=== PATIENT | male | born 1975 | race African-American/Black ===

== ENCOUNTER 2019-09-08 20:10 | Inpatient (IN) | payer SELFPAY ==
--- NOTE | 2019-09-08 20:52 | PDOC ---
History of Present Illness - General Chief Complaint: Seizure Stated Complaint: SEIZURES Time Seen by Provider: 09/08/19 20:14 History Source: Significant Other Exam Limitations: Clinical Condition - History of Present Illness Initial Comments: 09/13/19 23:38 44M h/o seizures not on AEDs BIBEMS after 5-6 witnessed seizures. Pt is confused / post-ictal and unable to provide hx; information gathered w/ girlfriend at bedside. Girlfriend said pt was normal this AM but he was c/o nausea and vomiting; they were messaging all day until 5pm when pt stopped responding. Girlfriend arrived home around 7pm and found pt on ground actively seizing, described as generalized. EMS was called. Pt stopped seizing, did not return back to baseline, and then subsequently had a total of 5 witnessed seizures (by pt and ems). Pt is still not at baseline. Has had prior seizures in the past but never followed up w/ neurology due to missed appointment. He was seen 2 months ago at [facility] for seizure and had neuro f/u that was never completed. Never on AEDs. Endorses marijuana use and occasional etoh but denies other drug use. Received 5mg versed en route by EMS, no seizures since. Denies other PMH NKDA Past History - Past Medical History Allergies/Adverse Reactions: Allergies Allergy/AdvReac Type Severity Reaction Status Date / Time No Known Allergies Allergy Verified 09/08/19 21:33 Home Medications: Ambulatory Orders Folic Acid - 1 mg PO DAILY #30 tablet 09/10/19 Thiamine HCl [Vitamin B1 -] 100 mg PO DAILY #30 tablet 09/10/19 levETIRAcetam [Keppra -] 500 mg PO BID #60 tablet 09/10/19 Review of Systems - Review of Systems Able to Perform ROS?: No Comments:: 09/13/19 23:38 unable to obtain ROS 2/2 pt mental status / clinical condition *Physical Exam - Vital Signs Temp Pulse Resp BP Pulse Ox 98.3 F 92 H 18 147/75 96 09/10/19 17:18 09/10/19 17:18 09/10/19 17:18 09/10/19 17:18 09/10/19 09:00 - Physical Exam 09/13/19 23:38 GEN: NAD, awake and alert but not verbally responsive HEENT: NC/AT. Unable to assess pupils and eyes as pt closes eyes tight with light. No facial asymmetry. Supple neck w/ FROM. CV: S1/S2, RRR, no m/r/g LUNG: CTAB, no wheezes, crackles, rales, rhonchi. GI: soft, ndnt, +BS, no guarding, no rebound. EXTREMITIES:No obvious deformities of all extremities. SKIN: warm, dry, normal turgor PSYCH: confused, minimally cooperative NEURO: Moving all extremities ED Treatment Course - LABORATORY CBC & Chemistry Diagram: 09/10/19 07:34 09/10/19 07:34 Medical Decision Making - Medical Decision Making 09/08/19 21:12 44M h/o seizures not on AED BIBEMS for witnessed seizures. s/p versed w/o further seizures. Pt is not at baseline, not verbally responsive, minimally cooperative with neurologic exam. will evaluate for causes of seizures: infection, lytes, masses, toxicologic - CBC, CMP, Mg, Phos, etoh - UA, UC, UDS - CXR - CT head - neuro c/s - load w/ keppra 09/08/19 23:04 notified by lab that tox screen + for amphetamines, BZD, and marijuana - BZD likely 2/2 versed - marijuana was known - amphetamines as possible cause of seizure? 09/08/19 23:24 labs reviewed - f/u CT - pt is more alert and responsive now but not completely at baseline. able to follow commands and participate in a basic neurologic exam; moves all extremities and squeezes fingers. 09/09/19 00:06 CT HEAD IOC IMPRESSION: no acute intracranial changes 09/09/19 02:05 endorsed to hospitalist team // ADMITTED Discharge - Discharge Information Problems reviewed: Yes Clinical Impression/Diagnosis: Seizure Condition: Improved Disposition: HOME - Admission Yes - Follow up/Referral - Patient Discharge Instructions - Post Discharge Activity
[2019-09-08] MEDS ORDERED: levETIRAcetam 500 MG/5 ML INJECTION VIAL IVPB ONE (21:18)
--- NOTE | 2019-09-08 21:29 | PDOC ---
Documentation entered by Brian Hernandez SCRIBE, acting as scribe for Sarahy Mccrary MD. Sarahy Mccrary MD: This documentation has been prepared by the David burrows Nirvannie, SCRIBE, under my direction and personally reviewed by me in its entirety. I confirm that the documentation accurately reflects all work, treatment, procedures, and medical decision making performed by me. Attending Attestation - Resident Resident Name: CobosRogelio - ED Attending Attestation I have performed the following: I have examined & evaluated the patient, The case was reviewed & discussed with the resident, I agree w/resident's findings & plan, Exceptions are as noted - HPI HPI: 09/08/19 21:50 The patient is a 44 year old male, with a significant past medical history of seizures (not on medications or compliant with f/u), occasional substance abuse (alcohol, marijuana), who presents to the emergency department s/p 6 witnessed episodes of full-body convulsions. As per EMS, 4 convulsions were witnessed by first responders (fire dept/EMS) and 2 were witnessed by his girlfriend. Girlfriend notes her last message to him was at 5pm and there was a 2 hour period of time which she did not hear from him until her arrival home from work when she noticed him convulsing She notes he was at his baseline this morning prior to her leaving for work. Patient admits to smoking marijuana today. Patient has a history of seizures which he has not been compliant with outpatient follow up. While in the ED, patient is confused thus history was obtained via girlfriend at bedside. - Physicial Exam PE: 09/08/19 21:16 awake confused moves all four ext. lungs clear bilat heart rrr no mrg abd soft nt nd ext wwp. no edema. no calf tenderness. answers some quesitons, follows commands, but confused. post ictal. - Medical Decision Making 09/08/19 21:17 44 yo male h/o prior siezure, started over last year, never followed up. left ama from last visit. roberto had witnessed seizure by his girlfriend . per girlfriend, they were texting, and his messages dropped off around 5 pm. around 7 pm returned home found him seizing on the ground, unresponsive generalized tonic clonic seiure. called EMS. per EMS pt had two more witnessed back to back seizure. no f/c no trauma however was on the floor. pt is not currently taking any anti-epileptics. states occasional weed use, majority history from girlfriend at bedside as pt is confused not answering questions appropriately. last seizure was 8 mo ago, at which time he was admitted to [facility], and left AMA. 09/08/19 21:26 plan labs ekg tox screen ct head. will likely require keppra load. differential includes electrolyte abnormality tox, etoh withdrawal however denies, raumatic causes. will obtain ct head cxr labs ekg. will kwasi require admission. was given versed by EMS, will consult nuerology. 09/09/19 01:50 pt mental status improving. will admit due to number of seiures. given keppra load.
[2019-09-08] MEDS ORDERED: SODIUM CHLORIDE 0.9% 1000 ML INFUS.BAG IV ONE (21:30)
[2019-09-08 21:41] LABS: BASO % 0.3 % (0-2.0); EOS % 0.1 % (0-4.5); LYMPH % 6.4 % (8-40); MCH 32.4 pg (25.7-33.7); MCHC 33.3 g/dl (32.0-35.9); MEAN CELL VOLUME 97.4 fl (80-96); MEAN PLT VOLUME 8.3 fl (7.5-11.1); MONO % 9.8 % (3.8-10.2); NEUT % 83.4 % (42.8-82.8); RBC 4.31 M/mm3 (4.00-5.60); RDW 14.7 % (11.9-15.9); WHITE BLOOD COUNT 12.4 K/mm3 (4.0-10.0)
[2019-09-08 22:08] LABS: EPI CELLS 0.9 /HPF (0-5/HPF); HYALINE CASTS 2 /lpf (0-8); URINE APPEARANCE CLEAR; URINE BACTERIA 2.2 /hpf (NEGATIVE); URINE BILIRUBIN NEGATIVE (NEGATIVE); URINE COLOR YELLOW; URINE GLUCOSE (UA) 3+ (NEGATIVE); URINE KETONE NEGATIVE (NEGATIVE); URINE LEUK ESTERASE NEGATIVE (NEGATIVE); URINE NITRITE NEGATIVE (NEGATIVE); URINE PROTEIN 2+ (NEGATIVE); URINE RBC 0 /hpf (0-4); URINE UROBILINOGEN 0.2 mg/dL (0.2-1.0); URINE WBC 3 /hpf (0-5)
[2019-09-08 22:16] LABS: ALBUMIN 4.2 g/dl (3.4-5.0); BILIRUBIN,TOTAL 0.3 mg/dL (0.2-1); CALCIUM 8.9 mg/dL (8.5-10.1); CREATININE 0.8 mg/dL (0.55-1.3); MAGNESIUM 2.2 mg/dL (1.8-2.4); PHOSPHOROUS 3.2 mg/dL (2.5-4.9); POTASSIUM 4.4 mmol/L (3.5-5.1); TOT PROT 7.6 g/dl (6.4-8.2)
[2019-09-08 22:18] LABS: PLATELET COUNT 216 K/MM3 (134-434); PLATELET ESTIMATE ADEQUATE
[2019-09-08 22:59] LABS: COCAINE, UR NEGATIVE ng/ml (CUTOFF=300); METHADONE, UR NEGATIVE ng/ml (CUTOFF=300); OPIATES, URI NEGATIVE ng/ml (CUTOFF=300); PHENCYCLIDINE,URINE NEGATIVE ng/ml (CUTOFF=25); URINE BARBITURATES NEGATIVE ng/ml (CUTOFF=200)
[2019-09-08 23:00] LABS: URINE AMPHETAMINES POSITIVE ng/ml (CUTOFF=500)
[2019-09-08 23:01] LABS: URINE BENZODIAZEPINES POSITIVE ng/ml (CUTOFF=200)
--- NOTE | 2019-09-09 02:55 | PN ---
Teaching Attending Note Name of Resident: Loren Madrigal ATTENDING PHYSICIAN STATEMENT I saw and evaluated the patient. I reviewed the resident's note and discussed the case with the resident. I agree with the resident's findings and plan as documented. SUBJECTIVE: Patient is a 44 year old man with a PMH of Seizures (not on medications or compliant with f/u) and Substance abuse (alcohol, marijuana), who presents to the emergency department after six witnessed episodes of full-body convulsions. As per EMS, 4 convulsions were witnessed by first responders (fire dept/EMS) and 2 were witnessed by his girlfriend. Girlfriend notes her last message to him was at 5pm and there was a 2 hour period of time which she did not hear from him until her arrival home from work when she noticed him convulsing. She notes he was at his baseline this morning prior to her leaving for work. Patient admits to smoking marijuana today. Patient has a history of seizures which he has not been compliant with outpatient follow up. While in the ER, patient is confused thus history was obtained via girlfriend at bedside. 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 Smokes marijuana and drinks alcohol with his girlfriend. EMS gave him Versed 5 mg en route. ROS not obtained due to his condition. OBJECTIVE: Somnolent but arousable Vital Signs Period Temp Pulse Resp BP Sys/Hyman Pulse Ox Last 24 Hr 97.8 F 107 20 141/86 95 HEENT: No Jaundice, eye redness or discharge, PERRLA, EOMI. Normocephalic, atraumatic. External ears are normal and hearing is grossly intact. No nasal discharge. Neck: Supple, nontender. No palpable adenopathy or thyromegaly. No JVD Chest: Good effort. Clear to auscultation and percussion. Heart: Regular. No S3, rub or murmur Abdomen: Not distended, soft, nontender and no HSM. No rebound or guarding. Normal bowel sounds. Ext: Peripheral pulses intact. No leg edema. Skin: Warm and dry. No petechiae, rash or ecchymosis. Neuro: Somnolent but arousable. Oriented person and place. CN 2-12 grossly intact. Sensation grossly intact in all four extremities and DTR are symmetric. Psych: Appropriate mood and affect. Poor insight. Abnormal Lab Results 09/08/19 09/08/19 09/08/19 21:25 21:25 21:50 WBC 12.4 H MCV 97.4 H Absolute Neuts (auto) 10.4 H Neutrophils % 83.4 H Lymphocytes % 6.4 L Nucleated RBC % 4 H Anion Gap 6 L AST 46 H Urine Protein Urine Glucose (UA) Urine Blood Ur Amphetamines Screen Positive A* Benzodiazepines Screen Positive A* U Marijuana (THC) Screen Positive A* 09/08/19 21:50 WBC MCV Absolute Neuts (auto) Neutrophils % Lymphocytes % Nucleated RBC % Anion Gap AST Urine Protein 2+ H Urine Glucose (UA) 3+ H Urine Blood 1+ H Ur Amphetamines Screen Benzodiazepines Screen U Marijuana (THC) Screen ASSESSMENT AND PLAN: 1. Recurrent seizures - Etiology unclear. May be related to his drug use and/or illicit drugs laced with proconvulsant substances. According to his girlfriend, the seizures started about 8 months ago. Lack of outpatient workup/follow up may be related to health insurance issues. No acute intracranial abnormality on Head CT and no acute abnormality on CXR. EKG shows NSR with PACs, LAE and LVH. Urine toxicology showed amphetamines, marijuana and benzodiazepine (? Versed). In the ER he got Keppra 1000 mg IV and IV NS. Continue Keppra 500 mg bid. Leukocytosis likely stress related - will monitor CBC. Piter get CPK, HbA1c and repeat urinalysis in view of glucosuria. Get brain MRI, EEG, RPR and consider lumbar puncture if all other workup is negative. Consult neurology. Will continue comprehensive care for all of patients comorbid conditions. Outpatient referral for BP monitoring since he may have undiagnosed hypertension (!has LVH). 2. Polysubstance abuse - Will monitor for drug withdrawal. Implement [facility] librium alcohol withdrawal protocol and do neurochecks. Implement seizure, fall and aspiration precautions. Treat with thiamine and folic acid and monitor electrolytes (Ca,Mg,K,P). Counseled patient about abstaining from alcohol/ illicit drugs. Will consult sight effects specialist and refer to alcohol/drug detox upon discharge. 3. DVT prophylaxis - Lovenox 40 mg SQ q 24 hours. 4. Advance directives - Full code
--- NOTE | 2019-09-09 03:03 | HP ---
CHIEF COMPLAINT: Seizure PCP: Unknown HISTORY OF PRESENT ILLNESS: Mr. Green is a 44 year old male with hx of seizures who was BIBEMS s/p 5 witnessed seizures. Pt in ED is confused and post-ictal and unable to provide thorough and reliable hx. Girlfriend at bedside assisted with information. Per girlfriend, pt was at baseline this morning and only complained of mild nausea. They messaged all day until 5pm, pt stopped responding. Girlfriend arrived to his home around 7pm and pt was found on ground actively seizing (all extremities , unresponsive, urinated himself). EMS was called. Pt had stopped seizing for several minutes, but did not return to baseline. He then proceeded to have a total of 5 witnessed generalized seizures en route to ED (witnessed by both pt and EMS). On arrival, pt is confused and not oriented, very lethargic but arousable. Pt had similar seizures 2 weeks ago and was seen at [facility] but never followed up with neurology or completed workup. Pt has hx of leaving AMA from [facility]. He has never been placed on anti-epileptic drugs. ER course was notable for: (1) Pt received versed in EMS, loaded with 1gm Keppra by ED (2) CT head: no evidence of acute infarct/hemorrhage or intracranial pathology; motion artifact (3) Dr. García consulted: observe overnight, will evaluate in the am. Did not recommend further imaging or intervention at this time. Recent Travel: unknown PAST MEDICAL HISTORY: Seizures PAST SURGICAL HISTORY: Unknown Social History: Smoking: denies Alcohol: yes, 1.75 L over 4 days with his Drugs: Marijuana. Amphetamines positive in urine, but pt does not admit to use Allergies No Known Allergies Allergy (Verified 09/08/19 21:33) HOME MEDICATIONS: REVIEW OF SYSTEMS CONSTITUTIONAL: Absent: fever, chills, diaphoresis, generalized weakness, malaise, loss of appetite, weight change HEENT: Absent: rhinorrhea, nasal congestion, throat pain, throat swelling, difficulty swallowing, mouth swelling, ear pain, eye pain, visual changes CARDIOVASCULAR: Absent: chest pain, syncope, palpitations, irregular heart rate, lightheadedness , peripheral edema RESPIRATORY: Absent: cough, shortness of breath, dyspnea with exertion, orthopnea, wheezing, stridor, hemoptysis GASTROINTESTINAL: Absent: abdominal pain, abdominal distension, nausea, vomiting, diarrhea, constipation, melena, hematochezia GENITOURINARY: Absent: dysuria, frequency, urgency, hesitancy, hematuria, flank pain, genital pain MUSCULOSKELETAL: Absent: myalgia, arthralgia, joint swelling, back pain, neck pain SKIN: Absent: rash, itching, pallor HEMATOLOGIC/IMMUNOLOGIC: Absent: easy bleeding, easy bruising, lymphadenopathy, frequent infections ENDOCRINE: Absent: unexplained weight gain, unexplained weight loss, heat intolerance, cold intolerance NEUROLOGIC: seizures Absent: headache, focal weakness or paresthesias, dizziness, unsteady gait, mental status changes, bladder or bowel incontinence PSYCHIATRIC: Absent: anxiety, depression, suicidal or homicidal ideation, hallucinations. PHYSICAL EXAMINATION Vital Signs - 24 hr 09/08/19 20:20 Temperature 97.8 F Pulse Rate 107 H Respiratory 20 Rate Blood Pressure 141/86 O2 Sat by Pulse 95 Oximetry (%) GENERAL: Somnolent, but arousable. Oriented to person and place. HEAD: Normal with no signs of trauma. EYES: Pupils equal, round and reactive to light, extraocular movements intact, sclera anicteric, conjunctiva clear. No lid lag. EARS, NOSE, THROAT: Ears normal, nares patent, oropharynx clear without exudates. Moist mucous membranes. NECK: Normal range of motion, supple without lymphadenopathy, JVD, or masses. LUNGS: Breath sounds equal, clear to auscultation bilaterally. No wheezes, and no crackles. No accessory muscle use. HEART: Irregular rate and rhythm, normal S1 and S2 without murmur, rub or gallop. ABDOMEN: Soft, nontender, not distended, normoactive bowel sounds, no guarding, no rebound, no masses. No hepatomegaly or splenomegaly. MUSCULOSKELETAL: Normal range of motion at all joints. No bony deformities or tenderness. No CVA tenderness. UPPER EXTREMITIES: 2+ pulses, warm, well-perfused. No cyanosis. No clubbing. No peripheral edema. LOWER EXTREMITIES: 2+ pulses, warm, well-perfused. No calf tenderness. No peripheral edema. NEUROLOGICAL: Cranial nerves II-XII intact. Normal speech. Normal gait. PSYCHIATRIC: Cooperative. Good eye contact. Appropriate mood and affect. SKIN: Warm, dry, normal turgor, no rashes or lesions noted, normal capillary refill. Laboratory Results - last 24 hr CBC, BMP 09/08/19 21:25 09/08/19 21:25 Urine Test Results Urine Color Yellow Urine Appearance Clear Urine pH 5.0 (5.0-8.0) Ur Specific [place] 1.018 (1.010-1.035) Urine Protein 2+ (NEGATIVE) H Urine Glucose (UA) 3+ (NEGATIVE) H Urine Ketones Negative (NEGATIVE) Urine Blood 1+ (NEGATIVE) H Urine Nitrite Negative (NEGATIVE) Urine Bilirubin Negative (NEGATIVE) Ur Leukocyte Esterase Negative (NEGATIVE) ASSESSMENT/PLAN: Mr. Green is a 44 year old male with hx of seizures who was BIBEMS s/p 5 witnessed seizures. #Generalized seizures, etiology unclear Likely 2/2 amphetamine use vs alcohol withdrawal vs other illicit drug use laced with proconvulsant substances CT head: no evidence of acute infarct/hemorrhage or intracranial pathology; motion artifact Utox: positive for marijuana, amphetamines, benzos (? from versed in EMS). F/ u alcohol level UA: 3+ glucose, 3+ protein, 1+ blood. Hematuria and proteinuria likely 2/2 rhabdo. F/u CPK and IV hydration as needed Glucosuria etiology unclear. Pt denies known hx of DM. F/u Hgb A1C% Pt received IV 1gm keppra in ED. Cont 500mg BID F/u MRI, EEG, RPR. Consider LP if workup is negative Neurology consulted (Dr. García) Fall precautions and NPO #Alcohol abuse Pt admits to 1.75L vodka over every 4 days. Last drink unknown. Ativan and CIWA protocol Treat with banana bag Frequent neuro checks and monitor for withdrawal #Undiagnosed HTN as pt shows evidence of LVH EKG: NSR with PACs, LAE and LVH F/u repeat EKG and frequent BP monitoring Outpatient referral #FEN Banana bag, start IV NS if needed for CPK NPO #DVT ppx Heparin sq #Dispo Monitor on med-surg ATTENDING PHYSICIAN STATEMENT I saw and evaluated the patient. I reviewed the resident's note and discussed the case with the resident. I agree with the resident's findings and plan as documented. SUBJECTIVE: OBJECTIVE: ASSESSMENT AND PLAN:
[2019-09-09] MEDS ORDERED: LORazepam 1 MG TABLET PO PRN (03:51)
[2019-09-09 05:45] VITALS: BMI 23.1
[2019-09-09] MEDS ORDERED: FOLIC ACID INJECTION - 1 MG, THIAMINE HCL 100 MG, MULTIVIT INJECTION ADULT 10 ML in SOD... IVPB ONE (06:00)
[2019-09-09] MEDS: HEPARIN NA (PORCINE) 5,000 UNITS/ML 1ML VIAL SQ SCH ×3 (06:51→21:31)
[2019-09-09 08:11] LABS: BASO % 0.5 % (0-2.0); EOS % 0.6 % (0-4.5); HEMATOCRIT 39.1 % (35.4-49); HEMOGLOBIN 13.3 GM/dL (11.7-16.9); LYMPH % 15.2 % (8-40); MCH 32.6 pg (25.7-33.7); MCHC 33.9 g/dl (32.0-35.9); MEAN CELL VOLUME 96.1 fl (80-96); MEAN PLT VOLUME 8.5 fl (7.5-11.1); MONO % 13.1 % (3.8-10.2); NEUT % 70.6 % (42.8-82.8); PLATELET COUNT 209 K/MM3 (134-434); RBC 4.07 M/mm3 (4.00-5.60); RDW 14.8 % (11.9-15.9); WHITE BLOOD COUNT 9.6 K/mm3 (4.0-10.0)
[2019-09-09 08:33] LABS: ALBUMIN 3.9 g/dl (3.4-5.0); BILIRUBIN,TOTAL 0.5 mg/dL (0.2-1); BLOOD UREA NITROGEN 8.6 mg/dL (7-18); CREATININE 0.7 mg/dL (0.55-1.3); MAGNESIUM 2.3 mg/dL (1.8-2.4); PHOSPHOROUS 3.1 mg/dL (2.5-4.9); POTASSIUM 3.7 mmol/L (3.5-5.1); TOT PROT 7.2 g/dl (6.4-8.2)
[2019-09-09] MEDS ORDERED: levETIRAcetam 500 MG/5 ML INJECTION VIAL IVPB SCH (10:00)
--- NOTE | 2019-09-09 10:28 | EKG ---
Test Reason : Blood Pressure : / mmHG Vent. Rate : 097 BPM Atrial Rate : 097 BPM P-R Int : 140 ms QRS Dur : 100 ms QT Int : 370 ms P-R-T Axes : 083 057 048 degrees QTc Int : 469 ms SINUS RHYTHM WITH PREMATURE ATRIAL COMPLEXES POSSIBLE LEFT ATRIAL ENLARGEMENT RSR' OR QR PATTERN IN V1 SUGGESTS RIGHT VENTRICULAR CONDUCTION DELAY LEFT VENTRICULAR HYPERTROPHY ABNORMAL ECG NO PREVIOUS ECGS AVAILABLE Confirmed by MD Yu, Silas ([id number]) on 09/09/2019 10:28:48 AM Referred By: Confirmed By:Silas Nicholas MD
[2019-09-09] MEDS ORDERED: PT OWN MED DRAWER 7, Y5N ONE (10:37)
[2019-09-09] MEDS ORDERED: ACETAMINOPHEN 325 MG TABLET (FP) PO PRN (14:59)
--- NOTE | 2019-09-09 15:16 | PN ---
Progress Note (short form) - Note Progress Note: 44 M h/o PSA, Seizure disorder (not compliant with meds or follow up) presents to ED with 5 witnessed seizure episodes requiring increment doses of Ativan. Patient did not have any seizure like activity on the floors, however now appears to be in a mild post-ictal state AAox2 (self and place) but does not know date. His girlfriend however endorses this is his baseline. No fevers, chills, cough, endorses some headache. Awaiting results from EEG done this morning as well as neurology evaluation. PE VSS GA AAOx2 (self and place), comfortable, speaks in full sentences, answers to questions HEENT NC/AT, EOMI, neck supple, mild scleral icterus Chest CTAB, no crackles or wheezes CVS S1, S2+, RRR Abd Soft, NT, ND Ext No LE edema, moves all 4 ext. Vital Signs - 24 hr 09/08/19 09/09/19 09/09/19 20:20 04:36 05:40 Temperature 97.8 F 98.4 F Pulse Rate 107 H 92 H Pulse Rate [ 90 Right] Respiratory 20 16 20 Rate Blood Pressure 141/86 140/76 Blood Pressure 135/82 [Right Arm] O2 Sat by Pulse 95 97 Oximetry (%) 09/09/19 09/09/19 05:46 08:40 Temperature 98.2 F Pulse Rate 93 H Pulse Rate [ Right] Respiratory 20 18 Rate Blood Pressure 142/93 Blood Pressure [Right Arm] O2 Sat by Pulse 96 Oximetry (%) Laboratory Results - last 24 hr 09/08/19 09/08/19 09/08/19 21:25 21:25 21:50 WBC 12.4 H RBC 4.31 Hgb 14.0 Hct 42.0 MCV 97.4 H MCH 32.4 MCHC 33.3 RDW 14.7 Plt Count 216 MPV 8.3 Absolute Neuts (auto) 10.4 H Neutrophils % 83.4 H Lymphocytes % 6.4 L Monocytes % 9.8 Eosinophils % 0.1 Basophils % 0.3 Nucleated RBC % 4 H Platelet Estimate Adequate Platelet Comment No clumping noted Sodium 139 Potassium 4.4 Chloride 103 Carbon Dioxide 31 Anion Gap 6 L BUN 12.0 Creatinine 0.8 Est GFR (CKD-EPI)AfAm 125.92 Est GFR (CKD-EPI)NonAf 108.65 Random Glucose 94 Hemoglobin A1c % Calcium 8.9 Phosphorus 3.2 Magnesium 2.2 Total Bilirubin 0.3 AST 46 H ALT 54 Alkaline Phosphatase 59 Creatine Kinase 773 H Creatine Kinase Index 0.2 CK-MB (CK-2) 2.2 Total Protein 7.6 Albumin 4.2 Urine Color Urine Appearance Urine pH Ur Specific [place] Urine Protein Urine Glucose (UA) Urine Ketones Urine Blood Urine Nitrite Urine Bilirubin Urine Urobilinogen Ur Leukocyte Esterase Urine WBC (Auto) Urine RBC (Auto) Urine Casts (Auto) U Epithel Cells (Auto) Urine Bacteria (Auto) Opiates Screen Negative Methadone Screen Negative Barbiturate Screen Negative Phencyclidine Screen Negative Ur Amphetamines Screen Positive A* MDMA (Ecstasy) Screen Negative Benzodiazepines Screen Positive A* Cocaine Screen Negative U Marijuana (THC) Screen Positive A* Alcohol, Quantitative RPR Titer 09/08/19 09/08/19 09/09/19 21:50 21:50 07:10 WBC RBC Hgb Hct MCV MCH MCHC RDW Plt Count MPV Absolute Neuts (auto) Neutrophils % Lymphocytes % Monocytes % Eosinophils % Basophils % Nucleated RBC % Platelet Estimate Platelet Comment Sodium Potassium Chloride Carbon Dioxide Anion Gap BUN Creatinine Est GFR (CKD-EPI)AfAm Est GFR (CKD-EPI)NonAf Random Glucose Hemoglobin A1c % Calcium Phosphorus Magnesium Total Bilirubin AST ALT Alkaline Phosphatase Creatine Kinase Creatine Kinase Index CK-MB (CK-2) Total Protein Albumin Urine Color Yellow Urine Appearance Clear Urine pH 5.0 Ur Specific [place] 1.018 Urine Protein 2+ H Urine Glucose (UA) 3+ H Urine Ketones Negative Urine Blood 1+ H Urine Nitrite Negative Urine Bilirubin Negative Urine Urobilinogen 0.2 Ur Leukocyte Esterase Negative Urine WBC (Auto) 3 Urine RBC (Auto) 0 Urine Casts (Auto) 2 U Epithel Cells (Auto) 0.9 Urine Bacteria (Auto) 2.2 Opiates Screen Methadone Screen Barbiturate Screen Phencyclidine Screen Ur Amphetamines Screen MDMA (Ecstasy) Screen Benzodiazepines Screen Cocaine Screen U Marijuana (THC) Screen Alcohol, Quantitative < 3 RPR Titer Nonreactive 09/09/19 09/09/19 09/09/19 07:14 07:14 07:14 WBC 9.6 RBC 4.07 Hgb 13.3 Hct 39.1 MCV 96.1 H MCH 32.6 MCHC 33.9 RDW 14.8 Plt Count 209 MPV 8.5 Absolute Neuts (auto) 6.8 Neutrophils % 70.6 Lymphocytes % 15.2 D Monocytes % 13.1 H Eosinophils % 0.6 D Basophils % 0.5 Nucleated RBC % 0 Platelet Estimate Platelet Comment Sodium Potassium Chloride Carbon Dioxide Anion Gap BUN Creatinine Est GFR (CKD-EPI)AfAm Est GFR (CKD-EPI)NonAf Random Glucose Hemoglobin A1c % 6.0 Calcium Phosphorus Magnesium Total Bilirubin AST ALT Alkaline Phosphatase Creatine Kinase Creatine Kinase Index CK-MB (CK-2) Total Protein Albumin Urine Color Urine Appearance Urine pH Ur Specific [place] Urine Protein Urine Glucose (UA) Urine Ketones Urine Blood Urine Nitrite Urine Bilirubin Urine Urobilinogen Ur Leukocyte Esterase Urine WBC (Auto) Urine RBC (Auto) Urine Casts (Auto) U Epithel Cells (Auto) Urine Bacteria (Auto) Opiates Screen Methadone Screen Barbiturate Screen Phencyclidine Screen Ur Amphetamines Screen MDMA (Ecstasy) Screen Benzodiazepines Screen Cocaine Screen U Marijuana (THC) Screen Alcohol, Quantitative < 3 RPR Titer 09/09/19 07:14 WBC RBC Hgb Hct MCV MCH MCHC RDW Plt Count MPV Absolute Neuts (auto) Neutrophils % Lymphocytes % Monocytes % Eosinophils % Basophils % Nucleated RBC % Platelet Estimate Platelet Comment Sodium 138 Potassium 3.7 Chloride 104 Carbon Dioxide 26 Anion Gap 8 BUN 8.6 Creatinine 0.7 Est GFR (CKD-EPI)AfAm 133.02 Est GFR (CKD-EPI)NonAf 114.77 Random Glucose 100 Hemoglobin A1c % Calcium 9.0 Phosphorus 3.1 Magnesium 2.3 Total Bilirubin 0.5 AST 44 H ALT 46 Alkaline Phosphatase 54 Creatine Kinase 943 H Creatine Kinase Index 0.4 CK-MB (CK-2) 4.3 H Total Protein 7.2 Albumin 3.9 Urine Color Urine Appearance Urine pH Ur Specific [place] Urine Protein Urine Glucose (UA) Urine Ketones Urine Blood Urine Nitrite Urine Bilirubin Urine Urobilinogen Ur Leukocyte Esterase Urine WBC (Auto) Urine RBC (Auto) Urine Casts (Auto) U Epithel Cells (Auto) Urine Bacteria (Auto) Opiates Screen Methadone Screen Barbiturate Screen Phencyclidine Screen Ur Amphetamines Screen MDMA (Ecstasy) Screen Benzodiazepines Screen Cocaine Screen U Marijuana (THC) Screen Alcohol, Quantitative RPR Titer Current Medications Generic Name Dose Route Start Last Admin Trade Name Freq PRN Reason Stop Dose Admin Acetaminophen 650 mg 09/09/19 14:59 Tylenol - PO Q6H PRN HEADACHE Heparin Sodium (Porcine) 5,000 unit 09/09/19 06:00 09/09/19 06:51 Heparin - SQ 5,000 unit TID JULIAN Administration Levetiracetam 500 mg 09/09/19 22:00 Keppra - PO BID JULIAN Lorazepam 0.5 mg 09/11/19 05:00 Ativan - PO 09/11/19 23:01 Q6H JULIAN Lorazepam 0.5 mg 09/11/19 00:00 Ativan - PO 09/12/19 00:00 Q4H PRN Symptoms of Withdrawal Lorazepam 0.5 mg 09/12/19 05:00 Ativan - PO 09/12/19 05:01 ONCE ONE Lorazepam 1 mg 09/09/19 03:51 Ativan - PO 09/11/19 00:00 Q4H PRN Symptoms of Withdrawal A/P: 44 M h/o seizure disorder, possibly substance induced v.s. primary seizure disorder, poor to follow up, underwent EEG awaiting neuro evaluation currently no seizures since yesterday. Seizure disorder Unknown etiology, possibly substance induced Utox +: THC, amphetamines, benzos, RPR negative EEG done, awaiting read Cont. Keppra 500mg BID (switched to PO) Elevated CPK due to seizures, cont. IV/PO hydration, renal/hepatic function stable Seizure precaution, fall risk Neurology consult: Dr. García PSA Utox positive for THC, amphetamines, benzos Cont. Thiamine, FA, MV daily Benzo + possibly due to EMS/ED administration of Ativan (pt. denies use of benzos) Will consult Dr. Sarmiento from [facility] for follow up DVT Ppx: Lovenox SC FEN IVF, chem daily, full diet Visit type - Emergency Visit Emergency Visit: Yes ED Registration Date: 09/09/19 Care time: The patient presented to the Emergency Department on the above date and was hospitalized for further evaluation of their emergent condition. - New Patient This patient is new to me today: No - Critical Care Critical Care patient: No
--- NOTE | 2019-09-09 17:44 | CONSULT ---
Consult - text type - Consultation Consultation Note: NEUROLOGY CONSULTATION is greatly appreciated: Events reviewed and discussed with ED, RNs and both Patient's girlfriend, Ariela , at the bedside and his mother by telephone. This 44 yo RH s, male moving man doesn't drive. PMH sig for recurrent seizures x approx 3 years for which he has never taken medications. His girlfriend notes that they come in bursts of multiple seizures and are followed by "confused speech" that may take hours to improve. His mother denies FH of seizures. Now admitted after at least 6 witnessed, generalized seizures. CT of head (reviewed): Normal Tox screen + for benzodiazepines (after Pt was given ativan?), amphetamines and marijuana. KYLAH: No evidence of external head trauma. Cor reg. Neck supple. NEURO: MS/speech: Non-fluent (expressive) aphasia. Comprehension preserved. CN II-XII: Normal Motor: No drift or tremor. Normal strength, bulk, tone and reflexes. Toes downgoing. Coord: No FTN dystaxia Sensory: Normal. Romberg neg Gait: Normal IMP: Non-focal neurological exam Seizure disorder. 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 SUGGEST: Maintain on levetiracetam 750 mg PO q 12 hrs. Agree with MRI of brain (C-/C+) Neurology f/u as out patient. [place] patient about risks of amphetamine abuse including causing and exacerbating seizures Thank you very much, Rogelio García MD
[2019-09-09] MEDS: levETIRAcetam 500 MG TABLET (FP) PO SCH (21:32)
[2019-09-10] MEDS: HEPARIN NA (PORCINE) 5,000 UNITS/ML 1ML VIAL SQ SCH ×2 (08:01→14:52)
[2019-09-10 08:11] LABS: BASO % 0.7 % (0-2.0); EOS % 1.7 % (0-4.5); HEMATOCRIT 38.6 % (35.4-49); HEMOGLOBIN 13.1 GM/dL (11.7-16.9); LYMPH % 28.8 % (8-40); MCH 32.5 pg (25.7-33.7); MCHC 33.9 g/dl (32.0-35.9); MEAN CELL VOLUME 95.7 fl (80-96); MEAN PLT VOLUME 8.5 fl (7.5-11.1); MONO % 17.2 % (3.8-10.2); NEUT % 51.6 % (42.8-82.8); PLATELET COUNT 181 K/MM3 (134-434); RBC 4.03 M/mm3 (4.00-5.60); RDW 14.2 % (11.9-15.9); WHITE BLOOD COUNT 4.7 K/mm3 (4.0-10.0)
[2019-09-10 08:50] LABS: ALBUMIN 3.9 g/dl (3.4-5.0); BILIRUBIN,DIRECT 0.1 mg/dL (0.0-0.2); BILIRUBIN,TOTAL 0.4 mg/dL (0.2-1); BLOOD UREA NITROGEN 7.9 mg/dL (7-18); CREATININE 0.7 mg/dL (0.55-1.3); POTASSIUM 3.4 mmol/L (3.5-5.1); TOT PROT 7.2 g/dl (6.4-8.2)
[2019-09-10] MEDS: levETIRAcetam 500 MG TABLET (FP) PO SCH (09:14)
[2019-09-10] MEDS ORDERED: FOLIC ACID 1 MG TABLET (FP) PO SCH (10:00)
[2019-09-10] MEDS ORDERED: THIAMINE HCL 100 MG TABLET (FP) PO SCH (10:00)
[2019-09-10] MEDS ORDERED: MULTIVITAMINS (DAILY MVI) TABLET (FP) PO SCH (10:00)
--- NOTE | 2019-09-10 14:10 | PN ---
Progress Note (short form) - Note Progress Note: No seizures today He is seen by neurologkarson last night and started on Keppra he is taking it no side effect No fever no chills. Rest of review of systems are negative Vital signs Vital Signs Period Temp Pulse Resp BP Sys/Hyman Pulse Ox Last 24 Hr 98.5 F-99.2 F 92-100 18-18 118-147/73-97 GA AAOx2 (self and place), comfortable, speaks in full sentences, answers to questions HEENT NC/AT, EOMI, neck supple, mild scleral icterus Chest CTAB, no crackles or wheezes CVS S1, S2+, RRR Abd Soft, NT, ND Ext No LE edema, moves all 4 ext. CBC, BMP 09/10/19 07:34 09/10/19 07:34 Laboratory Results - last 24 hr 09/10/19 09/10/19 07:34 07:34 WBC 4.7 RBC 4.03 Hgb 13.1 Hct 38.6 MCV 95.7 MCH 32.5 MCHC 33.9 RDW 14.2 Plt Count 181 MPV 8.5 Absolute Neuts (auto) 2.5 Neutrophils % 51.6 D Lymphocytes % 28.8 D Monocytes % 17.2 H Eosinophils % 1.7 D Basophils % 0.7 Nucleated RBC % 0 Sodium 136 Potassium 3.4 L Chloride 103 Carbon Dioxide 26 Anion Gap 7 L BUN 7.9 Creatinine 0.7 Est GFR (CKD-EPI)AfAm 133.02 Est GFR (CKD-EPI)NonAf 114.77 Random Glucose 108 H Calcium 9.0 Total Bilirubin 0.4 Direct Bilirubin 0.1 AST 40 H ALT 42 Alkaline Phosphatase 52 Creatine Kinase 683 H Creatine Kinase Index 0.2 CK-MB (CK-2) 2.0 Total Protein 7.2 Albumin 3.9 Assessment and plan 44 M h/o seizure disorder, possibly substance induced v.s. primary seizure disorder, poor to follow up, underwent EEG awaiting neuro evaluation currently no seizures Patient is seen by neurologist and recommended to go on Keppra 750 twice a day Seizure precautions Discussed the patient that he needs to follow-up with neurologist as outpatient EEG results are still pending He had MRI done requested by neurologist the report is still pending. Patient is ambulatory His urine was positive for amphetamine and and THC discussed with him that these medicine might cause him again more seizures and advised him to see rehabilitation from drug abuse. Current Medications Acetaminophen (Tylenol -) 650 mg PO Q6H PRN PRN Reason: HEADACHE Last Admin: 09/10/19 09:14 Dose: 650 mg Folic Acid (Folic Acid -) 1 mg PO DAILY [facility] Last Admin: 09/10/19 09:14 Dose: 1 mg Heparin Sodium (Porcine) (Heparin -) 5,000 unit SQ TID [facility] Last Admin: 09/10/19 08:01 Dose: 5,000 unit Levetiracetam (Keppra -) 500 mg PO BID [facility] Last Admin: 09/10/19 09:14 Dose: 500 mg Lorazepam (Ativan -) 0.5 mg PO Q6H [facility] Stop: 09/11/19 23:01 Lorazepam (Ativan -) 0.5 mg PO Q4H PRN PRN Reason: Symptoms of Withdrawal Stop: 09/12/19 00:00 Lorazepam (Ativan -) 0.5 mg PO ONCE ONE Stop: 09/12/19 05:01 Lorazepam (Ativan -) 1 mg PO Q4H PRN PRN Reason: Symptoms of Withdrawal Stop: 09/11/19 00:00 Multivitamins/Minerals/Vitamin C (Tab-A-Vit -) 1 tab PO DAILY [facility] Last Admin: 09/10/19 09:14 Dose: 1 tab Thiamine HCl (Vitamin B1 -) 100 mg PO DAILY [facility] Last Admin: 09/10/19 09:14 Dose: 100 mg Visit type - Emergency Visit Emergency Visit: Yes ED Registration Date: 09/09/19 Care time: The patient presented to the Emergency Department on the above date and was hospitalized for further evaluation of their emergent condition. - New Patient This patient is new to me today: Yes Date on this admission: 09/10/19 - Critical Care Critical Care patient: No - Discharge Referral Referred to [facility] No
[2019-09-10] MEDS ORDERED: levETIRAcetam 500 MG TABLET (FP) PO SCH (14:11)
[2019-09-10 15:13] VITALS: TEMP 98.3
[2019-09-10 17:19] VITALS: BP 147/75; PULSE 92
[2019-09-10] MEDS ORDERED: levETIRAcetam 500 MG TABLET (FP) PO ONE (17:49)
--- NOTE | 2019-09-10 17:54 | DS ---
Physical Exam: SUBJECTIVE: Patient seen and examined He is feeling better no more seizures. OBJECTIVE: Vital Signs Period Temp Pulse Resp BP Sys/Hyman Pulse Ox Last 24 Hr 98.3 F-98.9 F 92-100 18-18 118-147/73-97 96 PHYSICAL EXAM GENERAL: The patient is awake, alert, and fully oriented, in no acute distress. HEAD: Normal with no signs of trauma. EYES: PERRL, extraocular movements intact, sclera anicteric, conjunctiva clear. ENT: Ears normal, nares patent, oropharynx clear without exudates, moist mucous membranes. NECK: Trachea midline, full range of motion, supple. LUNGS: Breath sounds equal, clear to auscultation bilaterally, no wheezes, no crackles, no accessory muscle use. HEART: Regular rate and rhythm, S1, S2 without murmur, rub or gallop. ABDOMEN: Soft, nontender, nondistended, normoactive bowel sounds, no guarding, no rebound, no hepatosplenomegaly, no masses. EXTREMITIES: 2+ pulses, warm, well-perfused, no edema. NEUROLOGICAL: Cranial nerves II through XII grossly intact. Normal speech, gait not observed. PSYCH: Normal mood, normal affect. SKIN: Warm, dry, normal turgor, no rashes or lesions noted. LABS Laboratory Results - last 24 hr 09/10/19 09/10/19 07:34 07:34 WBC 4.7 RBC 4.03 Hgb 13.1 Hct 38.6 MCV 95.7 MCH 32.5 MCHC 33.9 RDW 14.2 Plt Count 181 MPV 8.5 Absolute Neuts (auto) 2.5 Neutrophils % 51.6 D Lymphocytes % 28.8 D Monocytes % 17.2 H Eosinophils % 1.7 D Basophils % 0.7 Nucleated RBC % 0 Sodium 136 Potassium 3.4 L Chloride 103 Carbon Dioxide 26 Anion Gap 7 L BUN 7.9 Creatinine 0.7 Est GFR (CKD-EPI)AfAm 133.02 Est GFR (CKD-EPI)NonAf 114.77 Random Glucose 108 H Calcium 9.0 Total Bilirubin 0.4 Direct Bilirubin 0.1 AST 40 H ALT 42 Alkaline Phosphatase 52 Creatine Kinase 683 H Creatine Kinase Index 0.2 CK-MB (CK-2) 2.0 Total Protein 7.2 Albumin 3.9 HOSPITAL COURSE: 44-year-old male admitted to the hospital for seizures in the hospital his CAT scan of the head was normal he was seen by neurologist recommended Keppra 500 mg twice a day patient had MRI done of the brain result is still pending but patient wants to go home advised him to continue Keppra 5 mg twice a day plus and thiamine folic acid he is going to follow-up at [facility] for follow-up on MRI and also seizure medicine. Discussed with the in detail about the disease process. Date of Admission:09/09/19 Date of Discharge: 09/10/19 Minutes to complete discharge: 30 Discharge Summary Problems reviewed: Yes Reason For Visit: SEIZURE Condition: Improved - Instructions Diet, Activity, Other Instructions: RESUME ACTIVITY Referrals: [facility] [place] [facility] [Provider Group] Rogelio García MD [Staff Physician] - Disposition: HOME - Home Medications Comprehensive Discharge Medication List: Ambulatory Orders Folic Acid - 1 mg PO DAILY #30 tablet 09/10/19 Thiamine HCl [Vitamin B1 -] 100 mg PO DAILY #30 tablet 09/10/19 levETIRAcetam [Keppra -] 500 mg PO BID #60 tablet 09/10/19 This patient is new to me today: Yes Date on this admission: 09/10/19 Emergency Visit: Yes ED Registration Date: 09/09/19 Care time: The patient presented to the Emergency Department on the above date and was hospitalized for further evaluation of their emergent condition. Critical Care patient: No - Discharge Referral Referred to [facility] No
[2019-09-11] MEDS ORDERED: LORazepam 0.5 MG TABLET PO PRN
[2019-09-11] MEDS ORDERED: LORazepam 0.5 MG TABLET PO SCH (05:00)
[2019-09-12] MEDS ORDERED: LORazepam 0.5 MG TABLET PO ONE (05:00)
== END 2019-09-10 18:21 | disposition home or self-care (01) | DRG 53 ==
LOC: JER 20:10 → JERBED 09-09 02:07 → J8W 09-09 05:13
PROVIDERS: ADMIT Internal Medicine; ATTEND Internal Medicine
DX: G40.909 Epilepsy, unspecified, not intractable, without status epilepticus (principal); F10.10 Alcohol abuse, uncomplicated; R47.01 Aphasia; F12.10 Cannabis abuse, uncomplicated; F15.10 Other stimulant abuse, uncomplicated
CPT/HCPCS: 36415; 70450-TC; 70551-TC; 71045-TC-FY; 80048; 80053; 80076; 80307; 81003; 82550; 82553; 83036; 83735; 84100; 85025; 86593; 93005; 93010; 95816; 99284-25; J1644; J7030